=== PATIENT | male | born 1955 | race Caucasian/White ===

== ENCOUNTER 2016-08-04 11:54 | Day surgery (SDC) | payer OTHER ==
--- NOTE | ~2016-08-04 | EGD ---
EGD REPORT [facility] [address] [place] [address] NAME: PAUL SLAUGHTER : [birth year] STATUS : REG [facility]#: [id number] AGE: 60 ADM/REG DATE : 08/04/16 MR#: [id number] REPORT SERV DATE: 08/04/16 DICTATED BY: KEITH WOODS DATE: 08/04/16 REPORT STATUS : Draft TRANSCRIBED BY: [facility] DATE: 08/04/16 Endoscopy Center Patient Name: Paul Slaughter Date of : 1955 Attending MD: AHSAN WOODS MD Procedure Date No Time: 08/04/2016 Procedure: Colonoscopy Indications: High risk colon cancer surveillance: Personal history of colonic polyps Medicines: See the Anesthesia note for documentation of the administered medications Complications: No immediate complications. Estimated blood loss: None. Procedure: Pre-Anesthesia Assessment: - ASA Grade Assessment: III - A patient with severe systemic disease. - Prior to the procedure, a History and Physical was performed, and patient medications and allergies were reviewed. The patient's tolerance of previous anesthesia was also reviewed. The risks and benefits of the procedure and the sedation options and risks were discussed with the patient. All questions were answered, and informed consent was obtained. Prior Anticoagulants: The patient has taken aspirin, last dose was 1 day prior to procedure. After reviewing the risks and benefits, the patient was deemed in satisfactory condition to undergo the procedure. After I obtained informed consent, the scope was passed under direct vision. Throughout the procedure, the patient's blood pressure, pulse, and oxygen saturations were monitored continuously. The PCF [id number] was introduced through the anus and advanced to the cecum, identified by appendiceal orifice and ileocecal valve. The ileocecal valve, appendiceal orifice and rectum were photographed. The entire colon was examined. The colonoscopy was technically difficult and complex due to significant looping, a tortuous colon, abdominal breathing and inability to hold air., inability to hold air in colon and significant colonic spasticity. The patient tolerated the procedure well. The quality of the bowel preparation was adequate. Findings: The perianal and digital rectal examinations were normal. The colon (entire examined portion) was significantly tortuous. A sessile polyp was found in the mid ascending colon. The polyp was 5 mm EGD REPORT [place] [id number] [facility] [place]. [address] NAME: PAUL SLAUGHTER : [birth year] STATUS : REG [facility]#: [id number] AGE: 60 ADM/REG DATE : 08/04/16 MR#: [id number] REPORT SERV DATE: 08/04/16 DICTATED BY: KEITH WOODS DATE: 08/04/16 REPORT STATUS : Draft TRANSCRIBED BY: [employer] DATE: 08/04/16 in size. The polyp was removed with a cold snare. Resection and retrieval were complete. A sessile polyp was found at the hepatic flexure. The polyp was 3 mm in size. The polyp was removed with a cold snare. Resection and retrieval were complete. A sessile polyp was found in the sigmoid colon. The polyp was 3 mm in size. The polyp was removed with a cold snare. Resection and retrieval were complete. A few medium-mouthed diverticula were found in the sigmoid colon. Non-bleeding internal hemorrhoids were found during retroflexion and were Grade I (internal hemorrhoids that do not prolapse). No other significant abnormalities were identified in a careful examination of the remainder of the colon. Impression: - Tortuous colon. - One 5 mm polyp in the mid ascending colon. Resected and retrieved. - One 3 mm polyp at the hepatic flexure. Resected and retrieved. - One 3 mm polyp in the sigmoid colon. Resected and retrieved. - Diverticulosis in the sigmoid colon. - Non-bleeding internal hemorrhoids. Recommendation: - Patient has a contact number available for emergencies. The signs and symptoms of potential delayed complications were discussed with the patient. Return to normal activities tomorrow. Written discharge instructions were provided to the patient. - High fiber diet indefinitely. - Discharge patient to home. - Continue present medications. - Await pathology results. - Repeat colonoscopy in 3 years for surveillance. Procedure Code(s): --- Professional --- 37448, Colonoscopy, flexible, proximal to splenic flexure; with removal of tumor(s), polyp(s), or other lesion(s) by snare technique Diagnosis Code(s): --- Professional --- Q43.8, Other specified congenital malformations of intestine D12.5, Benign neoplasm of sigmoid colon D12.3, Benign neoplasm of transverse colon D12.2, Benign neoplasm of ascending colon K64.0, First degree hemorrhoids EGD REPORT [address] [address] NAME: PAUL SLAUGHTER : [birth year] STATUS : REG [facility] [place] [facility] PAT#: [id number] AGE: 60 ADM/REG DATE : 08/04/16 MR#: [id number] REPORT SERV DATE: 08/04/16 DICTATED BY: KEITH WOODS DATE: 08/04/16 REPORT STATUS : Draft TRANSCRIBED BY: [employer] DATE: 08/04/16 K57.30, Diverticulosis of large intestine without perforation or abscess without bleeding Z86.010, Personal history of colonic polyps CPT copyright 2013 [employer]. All rights reserved. The codes documented in this report are preliminary and upon loom operator review may be revised to meet current compliance requirements. AHSAN WOODS MD 08/04/2016 2:25 PM This report has been signed electronically. Number of Addenda: 0 Note Initiated On: 08/04/2016 1:38 PM Scope Withdrawal Time 0 hours 13 minutes 57 seconds [id number] [place] [address]
--- NOTE | ~2016-08-04 | EGD ---
EGD REPORT [facility] [address] [place] [address] NAME: PAUL SLAUGHTER : [birth year] STATUS : REG [facility]#: [id number] AGE: 60 ADM/REG DATE : 08/04/16 MR#: [id number] REPORT SERV DATE: 08/04/16 DICTATED BY: KEITH WOODS DATE: 08/04/16 REPORT STATUS : Draft [facility]ANSCRIBED BY: [facility] DATE: 08/04/16 Endoscopy Center Patient Name: Paul Slaughter Date of : 1955 Attending MD: AHSAN WOODS MD Procedure Date No Time: 08/04/2016 Procedure: Upper GI endoscopy Indications: Gastro-esophageal reflux disease Medicines: See the Anesthesia note for documentation of the administered medications Complications: No immediate complications. Estimated blood loss: Minimal. Procedure: Pre-Anesthesia Assessment: - ASA Grade Assessment: III - A patient with severe systemic disease. - Prior to the procedure, a History and Physical was performed, and patient medications and allergies were reviewed. The patient's tolerance of previous anesthesia was also reviewed. The risks and benefits of the procedure and the sedation options and risks were discussed with the patient. All questions were answered, and informed consent was obtained. Prior Anticoagulants: The patient has taken aspirin, last dose was 1 day prior to procedure. After reviewing the risks and benefits, the patient was deemed in satisfactory condition to undergo the procedure. After obtaining informed consent, the endoscope was passed under direct vision. Throughout the procedure, the patient's blood pressure, pulse, and oxygen saturations were monitored continuously. The GIF H190 [id number] was introduced through the mouth, and advanced to the third part of duodenum. The upper GI endoscopy was accomplished without difficulty. The patient tolerated the procedure well. Findings: The examined duodenum was normal. The entire examined stomach was normal. Biopsy with a cold forceps was performed for histology. The cardia and gastric fundus were normal on retroflexion. There were esophageal mucosal changes suspicious for short-segment Perez's esophagus present in the lower third of the esophagus. The maximum longitudinal extent of these mucosal changes was 2 cm in length. Mucosa was biopsied with a cold forceps for histology randomly in the lower third of the esophagus. One specimen bottle was sent to pathology. EGD REPORT [address] [place]. [address] NAME: PAUL SLAUGHTER : [birth year] STATUS : REG [facility]#: [id number] AGE: 60 ADM/REG DATE : 08/04/16 MR#: [id number] REPORT SERV DATE: 08/04/16 DICTATED BY: KEITH WOODS DATE: 08/04/16 REPORT STATUS : Draft [facility]ANSCRIBED BY: [facility] DATE: 08/04/16 Estimated blood loss was minimal. No other significant abnormalities were identified in a careful examination of the esophagus. Impression: - Normal examined duodenum. - Normal stomach. Biopsied. - Esophageal mucosal changes suspicious for short-segment Perez's esophagus. Biopsied. Recommendation: - Patient has a contact number available for emergencies. The signs and symptoms of potential delayed complications were discussed with the patient. Return to normal activities tomorrow. Written discharge instructions were provided to the patient. - Regular diet. - Continue present medications. - Await pathology results. - Repeat the upper endoscopy in 1 year for surveillance. Procedure Code(s): --- Professional --- 37434, Esophagogastroduodenoscopy, flexible, transoral; with biopsy, single or multiple Diagnosis Code(s): --- Professional --- K22.9, Disease of esophagus, unspecified K21.9, Gastro-esophageal reflux disease without esophagitis CPT copyright 2013 [employer]. All rights reserved. The codes documented in this report are preliminary and upon professional shopper review may be revised to meet current compliance requirements. AHSAN WOODS MD 08/04/2016 2:01 PM This report has been signed electronically. Number of Addenda: 0 Note Initiated On: 08/04/2016 1:45 PM Scope Withdrawal Time 0 hours 0 minutes 0 seconds [id number] [place] [id number]
[~2016-08-04 11:54] MED LIST: ASAB PO; CYMBALTA60 PO; GLUCPH PO; INSNOVN SC; INSNOVR PO; LIPITOR80 MG PO; NEUR600 PO; PRILO PO; REMERON30 MG PO; VITAMIN D31000 UNIT PO; ZESTORETIC PO
== END 2016-08-04 23:59 | disposition home or self-care (01) ==
LOC: DMU 11:54
PROVIDERS: Internal Medicine Gastroenterology
PROC: 0DBL8ZZ Excision of Transverse Colon, Via Natural or Artificial Opening Endoscopic (ICD-10-PCS; 2016-08-04)
PROC: 0DB68ZZ Excision of Stomach, Via Natural or Artificial Opening Endoscopic (ICD-10-PCS; 2016-08-04)
PROC: 0DB58ZZ Excision of Esophagus, Via Natural or Artificial Opening Endoscopic (ICD-10-PCS; 2016-08-04)
PROC: 0DBK8ZZ Excision of Ascending Colon, Via Natural or Artificial Opening Endoscopic (ICD-10-PCS; principal; 2016-08-04 13:30)
PROC: 0DBN8ZZ Excision of Sigmoid Colon, Via Natural or Artificial Opening Endoscopic (ICD-10-PCS; 2016-08-04 13:30)
DX: Z12.11 Encounter for screening for malignant neoplasm of colon (principal); D12.2 Benign neoplasm of ascending colon; D12.3 Benign neoplasm of transverse colon; K63.5 Polyp of colon; K57.30 Diverticulosis of large intestine without perforation or abscess without bleeding; K64.0 First degree hemorrhoids; Q43.8 Other specified congenital malformations of intestine; K21.9 Gastro-esophageal reflux disease without esophagitis; K22.9 Disease of esophagus, unspecified; I10 Essential (primary) hypertension; G47.33 Obstructive sleep apnea (adult) (pediatric); E11.9 Type 2 diabetes mellitus without complications; F32.9 Major depressive disorder, single episode, unspecified; Z98.890 Other specified postprocedural states; Z86.010 Personal history of colon polyps
CPT/HCPCS: 82962; 88305